=== PATIENT | female | born 1990 | race American Indian/Alaskan Native ===

== ENCOUNTER 2016-09-14 09:09 | Emergency (ER) | payer SELFPAY ==
--- NOTE | 2016-09-14 09:41 | Emergency Department Report ---
Chief Complaint: Abdominal Pain Stated Complaint: ABD PAIN Time Seen by Provider: 09/14/16 09:36 - HPI History of Present Illness: 76-year-old -[place] female comes in for abdominal pain started on Monday. He reports no nausea no vomiting or diarrhea. She does admit to chills and subjective fever. She also reports that she had her tongue pierced Monday and now her tongue is swollen. Denies any discharge from the tongue. She reports that she went to to [facility] and had some mashed potatoes that she felt may have not been the best since the meat that was landed on it was greenish santana therefore she did not eat the meat but ate mashed potatoes. Appendectomy 2016. - Exam Vital Signs: Vital Signs 09/14/16 09:25 Temperature 99.0 F Pulse Rate 67 Respiratory 18 Rate Blood Pressure 111/68 O2 Sat by Pulse 99 Oximetry Physical Exam: Patient is alert and oriented 3. Cardiovascular S1-S2 regular rate and rhythm Respiratory: Clear to auscultation bilateral Abdomen: Soft bowel sounds throughout tenderness to the epigastric area MSE screening note: Focused history and physical exam performed. Due to findings the following was ordered: Patient's been evaluated by this provider MSC. CBC BMP lipase urinalysis been ordered ED Disposition for MSE Condition: Stable Instructions: Abdominal Pain (ED)
[2016-09-14 10:04] LABS: Hemoglobin 11.5 gm/dl (10.1-14.3); Mean Corpuscular HGB Conc 35 % (30-34); Mean Corpuscular Hemoglobin 31 pg (28-32); Mean Corpuscular Volume 89 fl (79-97); Platelet Count 237 K/mm3 (140-440); White Blood Count 3.4 K/mm3 (4.5-11.0)
[2016-09-14 10:16] LABS: Anion Gap 17 mmol/L; Blood Urea Nitrogen 3 mg/dL (7-17); Calcium 8.8 mg/dL (8.4-10.2); Carbon Dioxide 23 mmol/L (22-30); Chloride 102.4 mmol/L (98-107); Glucose 74 mg/dL (65-100); Potassium 4.3 mmol/L (3.6-5.0); Sodium 138 mmol/L (137-145)
[2016-09-14 10:18] LABS: Albumin 4.1 g/dL (3.9-5); Albumin/Globulin Ratio 1.3 %; Bilirubin,Direct 0.2 mg/dL (0-0.2); Bilirubin,Indirect 0.8 mg/dL; Total Protein 7.2 g/dL (6.3-8.2)
[2016-09-14 16:53] LABS: Bilirubin,Urine NEG (Negative); Blood,Urine NEG (Negative); Ketones,Urine 20 mg/dL (Negative); Leukocyte Esterase,Urine NEG (Negative); Nitrite,Urine NEG (Negative); Protein,Urine <15 mg/dL mg/dL (Negative); WBC,Urine < 1.0 /HPF (0.0-6.0)
[2016-09-14 17:21] VITALS: BP 117/74
[2016-09-14] MEDS ORDERED: TYLENOL #3 PO ONE (17:24)
--- NOTE | 2016-09-14 17:28 | Emergency Department Report ---
HPI - General Chief Complaint: Abdominal Pain Time Seen by Provider: 09/14/16 09:36 - HPI HPI: She is a 26-year-old female who presents ED complaining of abdominal pain 3 days. Patient states abdominal pain is localized to the epigastric region, nonradiating, 6 out of 10 intensity. Patient states she has not had a bowel movement since Monday. Patient states she normally has a bowel movement or 2 daily but has not had a bowel movement since Monday.. Patient also states she had her tongue pierced on Monday and is concerned about it because it is swollen. Patient denies rectal pain /history of hemorrhoids. Patient denies fevers/chills/nausea/vomiting/diarrhea /chest pain/shortness of breath/dizziness/ Headache ED Past Medical Hx - Past Medical History Hx Congestive Heart Failure: No Hx Diabetes: No Hx Sickle Cell Disease: Yes (hgb 13.0) Hx Asthma: No Hx COPD: No - Social History Smoking Status: Never Smoker - Medications Home Medications: Home Medications Medication Instructions Recorded Confirmed Last Taken Type HYDROcodone/APAP 5-325 [Portia 1 - 2 each PO Q4HR PRN #30 tablet 06/02/16 Unknown Rx 5/325] Levofloxacin [Levaquin TAB] 500 mg PO QDAY #5 tablet 06/02/16 Unknown Rx metroNIDAZOLE [Flagyl] 500 mg PO Q8HR #15 tablet 06/02/16 Unknown Rx Acetaminophen/Codeine 1 tab PO Q6H #14 tablet 09/14/16 Unknown Rx [Acetaminophen-Codeine #3 TAB] Docusate Sodium [Colace] 100 mg PO BID PRN #30 capsule 09/14/16 Unknown Rx Magnesium Citrate [Citrate of 300 ml PO BID #300 ml 09/14/16 Unknown Rx Magnesia] ED Review of Systems ROS: Stated complaint: ABD PAIN Other details as noted in HPI Constitutional: denies: chills, fever Eyes: denies: eye pain, eye discharge, vision change ENT: denies: ear pain, throat pain Respiratory: denies: cough, shortness of breath, wheezing Cardiovascular: denies: chest pain, palpitations Endocrine: no symptoms reported Gastrointestinal: denies: abdominal pain, nausea, diarrhea Genitourinary: denies: urgency, dysuria, discharge Musculoskeletal: denies: back pain, joint swelling, arthralgia Skin: denies: rash, lesions Neurological: denies: headache, weakness, paresthesias Psychiatric: denies: anxiety, depression Hematological/Lymphatic: denies: easy bleeding, easy bruising Physical Exam - Physical Exam Vital Signs: Vital Signs 09/14/16 09/14/16 09:25 17:19 Temperature 99.0 F 99.6 F Pulse Rate 67 54 L Respiratory 18 20 Rate Blood Pressure 111/68 Blood Pressure 117/74 [Left] O2 Sat by Pulse 99 98 Oximetry Physical Exam: GENERAL: Alert and oriented x3, no apparent distress, Normal Gait, atraumatic. HEAD: Head is normocephalic and a-traumatic. EYES: Extra ocular muscles are intact. Pupils are equal, round, and reactive to light and accommodation. EARS: symetrical, atraumati gross auditory nml bilaterally. NOSE: Nose symetrical, Nontender,Nares appeared normal. MOUTH:Mouth is well hydrated and without lesions. Patent airways. Tylenol normal-appearing. Piercings distal middle tongue., Nondistended, nonerythematous anterior and posteriorly NECK: Supple. Non edematous, No carotid bruits. No lymphadenopathy or thyromegaly. LUNGS: Symetrical with respiration, No wheezing, no rales or crackles, CTAB. HEART: S1, S2 present, regular rate and rhythm without murmur, no rubs, no gallops. ABDOMEN: No organomegaly was noted,Positive bowel sounds, soft, and non- distended. Nontender to palpation on all Quadrants, NO CVA tenderness. EXTREMITIES/MUSCULOSKELETAL: No cyanosis, clubbing, rash, lesions or edema. Full ROM bilaterally. UE/LE Pulses 2+ bilaterally. NEUROLOGIC: No focal Deficit, Cranial nerves II through XII are grossly intact. No loss of sensation, PSYCHIATRIC: Mood is congruent with affect, denies suicidal or homicidal ideations. SKIN: Warm and dry, No lesions, No ulceration or induration present. ED Course Vital Signs 09/14/16 09/14/16 09:25 17:19 Temperature 99.0 F 99.6 F Pulse Rate 67 54 L Respiratory 18 20 Rate Blood Pressure 111/68 Blood Pressure 117/74 [Left] O2 Sat by Pulse 99 98 Oximetry ED Medical Decision Making - Lab Data Result diagrams: 09/14/16 09:50 09/14/16 09:50 - Medical Decision Making 26-year-old female presents with a abdominal pain of unknown etiology. ED course: CBC, BMP, UA, UPT ordered. All labs within normal limits UA negative UPT negative. Labs show No indication of an infection process. Patient in no apparent distress. Normal exam. Discussed findings with patient. Discussed the patient to follow-up with the primary care doctor as referred. Vital signs stable. Patient is in no acute or sensory distress Discussed to follow instructions for tongue piercing. Discuss if new symptoms arise such as nausea vomiting diarrhea to return to ED otherwise follow-up with primary care. Critical care attestation.: If time is entered above; I have spent that time in minutes in the direct care of this critically ill patient, excluding procedure time. ED Disposition Clinical Impression: Epigastric abdominal pain of unknown etiology Disposition: DISCHARGED TO HOME OR SELFCARE Is pt being admited?: No Does the pt Need Aspirin: No Condition: Stable Instructions: Gas and Bloating (ED), Abdominal Pain (ED) Prescriptions: Acetaminophen/Codeine [Acetaminophen-Codeine #3 TAB] 1 tab PO Q6H #14 tablet Docusate Sodium [Colace] 100 mg PO BID PRN #30 capsule PRN Reason: Constipation Magnesium Citrate [Citrate of Magnesia] 300 ml PO BID #300 ml Referrals: PRIMARY CARE, [Primary Care Provider] - 3-5 Days [facility] [Outside] - 3-5 Days [facility] [Outside] - 3-5 Days [facility] [Outside] - [facility] - 3-5 Days [facility] [Outside] - 3-5 Days [facility] [Outside] - 3-5 Days [facility] [Outside] - 3-5 Days Forms: Work/School Release Form(ED) Time of Disposition: 17:36
== END 2016-09-14 18:01 | disposition home or self-care (01) ==
LOC: ED 09:09
DX: R10.13 Epigastric pain (principal); D57.1 Sickle-cell disease without crisis; Z79.899 Other long term (current) drug therapy; Z88.8 Allergy status to other drugs, medicaments and biological substances
CPT/HCPCS: 36415; 80048; 80074; 81001; 81025; 83690; 85027; 99283